=== PATIENT | female | born 1930 | race Caucasian/White ===

== ENCOUNTER 2017-02-28 05:27 | Inpatient (IN) ==
[2017-02-26 16:04] LABS: Appearance,Urine HAZY; Bilirubin,Urine NEG (NEG); Color,Urine YELLOW; Glucose,Urine (UA) NEGATIVE (NEG); Leukocyte Esterase,Urine NEG /uL (NEG); Nitrate,Urine NEG (NEG); Protein,Urine NEG (NEG); Specific Gravity,Urine 1.013 (1.000-1.035); Urine Blood NEG mg/dL (<0.03); Urobilinogen,Urine NEG (NEG)
[2017-02-26 16:24] LABS: Basophils # (Auto) 0 K/mcL (0.0-0.3); Basophils % (Auto) 0.4 % (0.0-2.0); Eosinophils # (Auto) 0 K/mcL (0.0-0.7); Eosinophils % (Auto) 0.2 % (0.0-7.0); Granulocytes % (Auto) 57.2 % (38.0-78.0); Lymphocytes # (Auto) 3.2 K/mcL (1.5-4.8); Lymphocytes % (Auto) 34.8 % (15.5-49.0); Mean Cell Volume 92.3 fL (80.0-100.0); Mean Corpuscular HGB Conc 33.1 g/dL (31.0-36.0); Mean Corpuscular Hemoglobin 30.6 pg (26.0-34.0); Monocytes # (Auto) 0.7 K/mcL (0.1-0.9); Monocytes % (Auto) 7.4 % (1.0-12.0); Platelet Count 221 K/mcL (140-440); RBC 4.59 M/mcL (4.00-5.20); Red Cell Distribution Width 13.6 % (11.5-14.5)
[2017-02-26 16:27] LABS: Blood Urea Nitrogen 19 mg/dl (8-23)
[2017-02-28] MEDS ORDERED: PREGABALIN 75 MG CAPSULE PO SCH (06:00)
[2017-02-28] MEDS ORDERED: ceFAZolin 1 GM VIAL IV SCH ×2 (06:00→15:00)
[2017-02-28] MEDS ORDERED: oxyCODONE 10 MG TAB.ER.12H PO SCH (06:00)
[2017-02-28] MEDS ORDERED: CELECOXIB 200 MG CAPSULE PO SCH (06:00)
[2017-02-28] MEDS ORDERED: ONDANSETRON 4 MG/2 ML VIAL IV ONE (07:45)
[2017-02-28] MEDS ORDERED: ePHEDrine 50 MG/ML AMPUL IV ONE (07:45)
[2017-02-28] MEDS ORDERED: GLYCOPYRROLATE 0.2 MG/ML VIAL IV ONE (07:45)
[2017-02-28] MEDS ORDERED: MIDAZOLAM 5 MG/5 ML VIAL IV ONE (07:45)
[2017-02-28] MEDS ORDERED: DEXAMETHASONE 10 MG/ML VIAL IV ONE (07:45)
[2017-02-28] MEDS ORDERED: PROPOFOL 200 MG/20 ML VIAL IV ONE (07:45)
[2017-02-28] MEDS ORDERED: LIDOCAINE HCL/PF 100 MG/5 ML SYRINGE IV ONE (07:45)
[2017-02-28] MEDS ORDERED: TRANEXAMIC ACID 1,000 MG/10 ML VIAL IV ONE (07:45)
[2017-02-28] MEDS ORDERED: PHENYLEPHRINE 10 MG/ML VIAL IV ONE (07:45)
[2017-02-28] MEDS ORDERED: HEPARIN 10,000 UNIT/ML VIAL IR ONE (08:33)
[2017-02-28] MEDS ORDERED: METOPROLOL TARTRATE 5 MG/5 ML VIAL IV PRN (08:52)
[2017-02-28] MEDS ORDERED: HYDROmorphone 2 MG/ML SYRINGE IV PRN (08:52)
[2017-02-28] MEDS ORDERED: IPRATROPIUM/ALBUTEROL 3 ML AMPUL.NEB NEB PRN (08:52)
[2017-02-28] MEDS ORDERED: BENZOCAINE/MENTHOL 1 LOZENGE PO PRN ×2 (08:52→09:21)
[2017-02-28] MEDS ORDERED: ONDANSETRON 4 MG/2 ML VIAL IV PRN ×2 (08:52→09:21)
[2017-02-28] MEDS ORDERED: ePHEDrine 50 MG/ML AMPUL IV PRN (08:52)
[2017-02-28] MEDS ORDERED: NALOXONE HCL 0.4 MG/ML VIAL IV PRN (08:52)
[2017-02-28] MEDS ORDERED: diphenhydrAMINE 50 MG/ML VIAL IV PRN (08:52)
[2017-02-28] MEDS ORDERED: FLUMAZENIL 0.1 MG/ML ML IV PRN (08:52)
[2017-02-28] MEDS ORDERED: METHOCARBAMOL 1,000 MG/10 ML VIAL IV PRN (08:52)
[2017-02-28] MEDS ORDERED: ACETAMINOPHEN 1,000 MG/100 ML BOTTLE IV ONE (08:52)
[2017-02-28] MEDS ORDERED: MEPERIDINE 25 MG/ML SYRINGE IV PRN (08:52)
[2017-02-28] MEDS ORDERED: fentaNYL 100 MCG/2 ML VIAL IV PRN (08:52)
[2017-02-28] MEDS ORDERED: LACTATED RINGERS 1,000 ML IV SCH (09:00)
--- NOTE | 2017-02-28 09:20 | Brief Operative Note ---
Date of procedure: 02/28/17 Pre-op diagnosis: Right hip DJD Post-op diagnosis: same Procedure: Right anterior total hip arthroplasty Grafts/Implants: Yes (Depuy Actis 6 std, +1.5 36 delta head, 54 cup, neutral altrx liner) Anesthesia: spinal Findings: arthritis Complications: none Surgeon: Moises Thomas Assistive Technology Specialist: Chuy Bland Estimated blood loss (cc): 150 Specimens Removed/Pathology: none sent Condition: stable Disposition: PACU
[2017-02-28] MEDS ORDERED: TRANEXAMIC ACID 1,000 MG/10 ML VIAL IV SCH (09:21)
[2017-02-28] MEDS ORDERED: KETOROLAC 15 MG/ML VIAL IV PRN (09:21)
[2017-02-28] MEDS ORDERED: ACETAMINOPHEN 325 MG TABLET PO PRN (09:21)
[2017-02-28] MEDS ORDERED: MAGNESIUM HYDROXIDE 30 ML ORAL.SUSP PO PRN (09:21)
[2017-02-28] MEDS ORDERED: BISACODYL 10 MG SUPP.RECT PR PRN (09:21)
[2017-02-28] MEDS ORDERED: FLEETS ADULT ENEMA PR PRN (09:21)
--- NOTE | 2017-02-28 10:14 | XRay Report ---
CLINICAL INFORMATION: Reason for Exam:Post-op Total Hip COMPARISON: None. FINDINGS: Right total hip prostheses is anatomically aligned. There are no osseous abnormalities. Moderate L5-S1 degenerative disc disease noted. There is mild degenerative change seen in the left hip. Soft tissue swelling over the surgical site seen as expected IMPRESSION: Right hip prostheses in anatomic alignment Interpreted and Authenticated by: Zaki Lainez 02/28/17
[2017-02-28] MEDS: 0.9 % SODIUM CHLORIDE 1,000 ML IV SCH ×2 (12:10→21:09)
--- NOTE | 2017-02-28 12:55 | Operative Note ---
DATE OF OPERATION: 02/28/2017 PREOPERATIVE DIAGNOSIS: Right hip severe osteoarthritis. POSTOPERATIVE DIAGNOSIS: Right hip severe osteoarthritis. PROCEDURE PERFORMED: Right anterior approach total hip arthroplasty using a DePuy Actis size 6 standard offset femoral stem, a +1.5, 36 mm delta ceramic head ball with a 54 three-hole Newman cup with a neutral AltrX liner. SURGEON: Moises Thomas MD. CIGAR MACHINE FEEDER: Fahrad Bland PA-C. ANESTHESIA: Spinal plus general. DRAINS: None. SPECIMENS: Femoral head and reamings, which were discarded. BLOOD LOSS: 150 mL COMPLICATIONS: None. POSTOPERATIVE CONDITION: Stable. INDICATIONS FOR SURGERY: This is an 87-year-old female who has had longstanding progressive worsening right hip pain and radiographs showed advanced [id number] osteoarthritis. FINDINGS AT SURGERY: As above. Post implantation showed components in good position with nearly symmetrical leg length and offset. PROCEDURE IN DETAIL: The patient had been seen preoperatively. Informed consent had been obtained after discussion of risks and benefits of surgery. Risks including, but not limited to, bleeding, possibly requiring transfusion; infection, possibly requiring implant removal and prolonged IV antibiotics; injury to nerves, blood vessels, and other surrounding structures; anesthetic risks; incomplete or no resolution of symptoms; leg length discrepancy; dislocation; fracture; DVT and pulmonary embolus risks; and the possibility of needing further surgery. She understood these risks and wished to proceed. Correct operative site was marked in preoperative holding and the patient received spinal anesthesia. She was then taken to the operating room and LMA general given. She was carefully positioned on the fracture table and then right hip and groin were carefully prepped and draped in normal sterile fashion. Timeout was performed verifying patient name, operative site, and plan. Standard anterior approach incision was made with a scalpel through skin and subcutaneous tissue and hemostasis was obtained with Bovie cautery. Careful blunt dissection was taken down onto the tensor fascia and then this was undermined circumferentially. IrriSept irrigation was done and then a ring retractor placed. Tensor fascia was incised in line with the muscle fibers and then careful blunt dissection taken medial to the muscle belly. Blunt cobra retractors were placed on the superior and inferior femoral neck. The reflected head of the rectus was detached off the anterior capsule and then anterior capsulectomy was performed after coagulating and cutting the circumflex vessels and releasing fascia distally. Capsule or releases were taken out towards the greater trochanter and down towards the lesser and then corkscrew was placed in the femoral head. An osteotome was used under fluoro to identify our neck cut trajectory and then oscillating tip saw used to make our osteotomy and the femoral head was removed. The acetabulum was exposed and labrum was removed circumferentially as well as soft tissue from the floor. A reamer was used initially directly medialize to the tear drop and then increasing reamer angle up to a 53 reamer before we got rim ream. We trialed a 53 and had good press-fit, so a 54 no-hole Newman cup was opened. We irrigated IrriSept. After a minute we pulse lavaged copiously with saline and then impacted the cup at approximately 40 degrees of inclination and 25 degrees of anteversion. This seated very well; however, radiographically it looked like it was a millimeter or so from fully seating so I went ahead and placed a screw in the posterior superior quadrant drilling and then placing a 35 mm screw. We got excellent cortical purchase but this did not close the gap down. Center hole cover was placed and a neutral AltrX liner was carefully impacted. We checked for any anterior osteophytes. This was removed with an osteotome. We then removed traction from the leg and then externally rotated, extended. Capsule release was taken out towards trochanter around the posterior neck. A box osteotome was used to gain canal entry and then an awl was used to identify trajectory. Rongeur and rasp were used to lateralize and then began sequentially broaching with the Actis broaches up to a size 5. We calcar planed and then placed a standard offset neck trial with a +1.5 head ball. Hip was reduced. AP pelvis was taken to verify neutral rotation and AP of the nonoperative and operative hips were taken. We overlaid x-rays. Leg length and offset were nearly symmetrical. It looked like the stem was slightly undersized, so we went ahead and redislocated. I removed the neck trial ball and then impacted the 5 broach down below our neck cut, so I went up to a size 6, which seated right at our neck cut. We opened a size 6 standard offset Actis stem and the trial stem was removed. IrriSept was irrigated down the femoral canal and after waiting imminent pulse lavaged with saline. The stem was then impacted until it seated on the medial calcar and then a +1.5 head ball was opened. The stem was carefully cleaned and dried and then head ball was briskly impacted. The hip was reduced and final fluoro images taken and saved. We then irrigated IrriSept again, after a minute pulse lavaged and then tensor fascia lolly was closed with a #1 Vicryl, one running proximal and one running distal. Final IrriSept was irrigated after removing the ring retractor and after a minute pulse lavage and then 2-0 Monocryl used for subcutaneous and gracia for skin. Xeroform sterile dressings were applied and then the patient was awakened, extubated, and transferred to recovery in stable condition. [email or web address]:[id number] Job ID: [id number] Doc ID: [id number] Moises Thomas MD
[2017-02-28] MEDS: CALCIUM CARBONATE 500 MG TAB.CHEW CHEWED SCH ×2 (13:11→17:12)
[2017-02-28] MEDS: 0.9 % SODIUM CHLORIDE 10 ML SYRINGE IV SCH ×2 (13:12→22:00)
[2017-02-28] MEDS: ceFAZolin 1 GM VIAL IV SCH ×2 (16:10→23:38)
[2017-02-28] MEDS: oxyCODONE/APAP 5/325MG TABLET PO PRN (16:18)
[2017-02-28] MEDS ORDERED: POLYETHYLENE GLYCOL 3350 17 GM PACKET PO SCH (17:30)
[2017-02-28] MEDS ORDERED: PROPRANOLOL 60 MG CAP.XL.24H PO SCH (21:00)
[2017-02-28] MEDS ORDERED: SENNOSIDES 1 TABLET PO SCH (21:00)
[2017-02-28] MEDS ORDERED: SIMVASTATIN 20 MG TABLET PO SCH (21:00)
[2017-02-28] MEDS ORDERED: FAMOTIDINE 20 MG TABLET PO PRN (21:00)
[2017-02-28] MEDS: ASPIRIN 325 MG ENTERIC COATED TABLET PO SCH (21:09)
[2017-02-28] MEDS: DOCUSATE SODIUM 100 MG CAPSULE PO SCH (21:09)
[2017-03-01] MEDS: oxyCODONE/APAP 5/325MG TABLET PO PRN ×2 (01:48→09:18)
--- NOTE | 2017-03-01 05:38 | Orthopedic Progress Note ---
Subjective Patient information: Note initiated : 03/01/17 at 5:36 am Service Date, if different from initiated Date: [] Patient: Kenya Adams 87 y/o F admitted on 02/28/17 for Right Total Hip Arthroplasty. Chief Complaint: [] Principal diagnosis: s/p total knee arthroplasty Interval history: patient sleeping comfortably Objective Vital signs: Vital Signs Temp Pulse Resp BP BP Pulse Ox 03/01/17 04:00 97.9 F 55 L 16 139/61 97 02/28/17 23:58 94 02/28/17 23:57 98.2 F 59 L 16 97/54 88 L 02/28/17 19:43 97.6 F 61 16 108/66 94 02/28/17 16:00 96.9 F L 56 L 20 138/70 02/28/17 15:38 127/80 90 02/28/17 13:10 134/75 95 02/28/17 12:28 134/70 98 02/28/17 12:11 125/82 96 02/28/17 11:40 53 L 123/85 97 02/28/17 11:09 169/93 97 02/28/17 09:50 97.6 F 66 14 152/89 95 02/28/17 09:38 72 13 160/84 91 02/28/17 09:29 97.2 F 78 16 151/83 94 02/28/17 05:45 97.6 F 65 20 176/95 96 Intake and Output 02/28/17 02/28/17 03/01/17 13:59 21:59 05:59 Intake Total 2580 / 2580 240 / 240 550 / 550 Output Total 300 / 300 425 / 425 200 / 200 Balance 2280 / 2280 -185 / -185 350 / 350 Intake: IV 1200 / 1200 Oral 600 / 600 240 / 240 550 / 550 GI Tube Flush 780 / 780 Output: Void Amount 425 / 425 200 / 200 Straight 375 / 375 Estimated Blood Loss 300 / 300 Other: Meal Lunch Dinner Percent of Meal Consumed 100% 100% Feeding Ability Assist with Tray Set Up Independent # Voids 1 1 Weight 165 lb Patient Weight 03/01/17 05:59 Weight 165 lb Intake & Output: Intake & Output 02/28/17 02/28/17 03/01/17 13:59 21:59 05:59 Intake Total 2580 / 2580 240 / 240 550 / 550 Output Total 300 / 300 425 / 425 200 / 200 Balance 2280 / 2280 -185 / -185 350 / 350 Weight 165 lb Intake: IV 1200 / 1200 Oral 600 / 600 240 / 240 550 / 550 GI Tube Flush 780 / 780 Output: Void Amount 425 / 425 200 / 200 Straight 375 / 375 Estimated Blood Loss 300 / 300 Other: Meal Lunch Dinner Percent of Meal Consumed 100% 100% Feeding Ability Assist with Tray Set Up Independent # Voids 1 1 Additional Comments: sleeping comfortably - Labs CBC & BMP: 02/26/17 12:58 02/26/17 12:58 Labs: Orthopedic Labs 02/26/17 12:58 PT 13.1 INR 1.0 03/01/17 02/26/17 04:33 12:58 Hgb Pending 14.0 Hct Pending 42.4 Assessment and Plan (1) S/P total hip arthroplasty POD#1-stable -PT this am -poss d/c later today Status: Acute
--- NOTE | 2017-03-01 05:45 | Discharge Summary ---
Ortho Discharge - [facility] - Patient Instructions Diet: Regular Diet Activity: activity as tolerated, weight bearing as tolerated Total Hip Protocol: Follow activity instructions as provided by Physical Therapy. Dressing Care: May shower in 2 days, Aquacel Ag - leave on for 5 days - Problem Maintenance (1) S/P total hip arthroplasty Status: Acute - Follow Up Plan Disposition: Home, Self-Care Prognosis: Good Rehab Potential: Good - Orders For Discharge Additional Discharge Orders: Physical Therapy at Discharge - [facility] Location: Determined By Patient Toilet Riser Discharge Order Location: Determined By Patient Walker Location: Determined By Patient
[2017-03-01] MEDS: 0.9 % SODIUM CHLORIDE 1,000 ML IV SCH (05:58)
[2017-03-01] MEDS: 0.9 % SODIUM CHLORIDE 10 ML SYRINGE IV SCH (06:25)
--- NOTE | 2017-03-01 07:03 | Discharge Summary ---
Providers - Providers Patient information: Note initiated : 03/01/17 at 7:01 am Service Date, if different from initiated Date: [] Patient: Kenya Adams 87 y/o F admitted on 02/28/17 for Right Total Hip Arthroplasty. Chief Complaint: [] Discharge date: 03/01/17 Hospitalization Hospital course: Pt admitted for direct anterior total hip arthroplasty. Transfered top the floor after the procedure for IV pain meds, iv abx, and PT. Pt was discharged on post-op day 1 with ASA for DVT prevention and appropriate pain meds. Discharge diagnosis: R hip osetoarthrosis Exam - Exam Clean and dry: Yes Weight bearing status: as tolerated Ortho Discharge - [facility] - Patient Instructions Diet: Regular Diet Activity: activity as tolerated, weight bearing as tolerated Total Hip Protocol: Follow activity instructions as provided by Physical Therapy. - Follow Up Plan Disposition: Home, Self-Care Prognosis: Good Rehab Potential: Good Overall status at discharge: patient is progressing back to baseline - Orders For Discharge Prescriptions: Aspirin [Ecotrin] 325 mg PO BID #60 tab.ec Docusate Sodium 250 mg PO BID #60 capsule oxyCODONE/APAP [Percocet 5-325 mg] 1 tab PO Q4H PRN #60 tablet PRN Reason: Pain Polyethylene Glycol 3350 [Miralax] 17 gm PO DAILY #30 packet traMADol [Ultram] 50 - 100 mg PO Q4-6HP PRN #60 tablet PRN Reason: Pain Additional Discharge Orders: Physical Therapy at Discharge - [facility] Location: Determined By Patient Toilet Riser Discharge Order Location: Determined By Patient Walker Location: Determined By Patient Pending Studies Resuscitation Status Full Code Diet Regular Diet Start SunFeb 28 Lunch Aspirin (Ecotrin) 325 mg PO BID [facility] Last Admin: 02/28/17 21:09 Dose: 325 mg Calcium Carbonate/Glycine (Tums) 1,000 mg CHEWED TIDCC [facility] Last Admin: 02/28/17 17:12 Dose: 1,000 mg Admin: 02/28/17 13:11 Dose: 1,000 mg Docusate Sodium (Colace) 100 mg PO BID [facility] Last Admin: 02/28/17 21:09 Dose: 100 mg Sodium Chloride (Sodium Chloride 0.9%) 1,000 mls @ 100 mls/hr IV .Q10H [facility] Last Admin: 03/01/17 05:58 Dose: Admin: 02/28/17 21:09 Dose: Not Given Admin: 02/28/17 12:10 Dose: 100 mls/hr Oxycodone/Acetaminophen (Percocet 5-325 Mg) 0 tab PO Q4HP PRN PRN Reason: Pain Last Admin: 03/01/17 01:48 Dose: 1 tab Admin: 02/28/17 16:18 Dose: 1 tab Propranolol HCl (Inderal La) 60 mg PO HS [facility] Last Admin: 02/28/17 21:10 Dose: 60 mg Senna (Senokot) 2 tab PO HS [facility] Last Admin: 02/28/17 21:09 Dose: 2 tab Simvastatin (Zocor) 20 mg PO HS [facility] Last Admin: 02/28/17 21:09 Dose: 20 mg Sodium Chloride (Saline Flush) 10 ml IV Q8 [facility] Last Admin: 03/01/17 06:25 Dose: 10 ml Admin: 02/28/17 22:00 Dose: 10 ml Admin: 02/28/17 13:12 Dose: Not Given Shift Summary 03/01/17 04:13 Shift Summary by Vida Nunez Pt had a good night. Up with SBA and FWW. Voiding in BR QS. Drsg to right anterior hip has some shadow drainage outlined. Alert and oriented. Medicated with 1 tab Percocet x1. Ice pack used. IV to right hand, SL, patent. VSS, placed 2L NC fci through night for O2 sats of 88-89%. She is fine on RA when awake. Ambulated down to cafeteria and back to room. Poss d/c today. Initialized on 03/01/17 04:13 - END OF NOTE
[2017-03-01] MEDS ORDERED: LEVOTHYROXINE 125 MCG TABLET PO SCH (07:30)
[2017-03-01] MEDS ORDERED: ERGOCALCIFEROL (VITAMIN D2) 50,000 UNIT CAPSULE PO SCH (09:00)
[2017-03-01] MEDS ORDERED: LISINOPRIL 10 MG TABLET PO SCH (09:00)
[2017-03-01] MEDS: CALCIUM CARBONATE 500 MG TAB.CHEW CHEWED SCH (09:20)
[2017-03-01] MEDS: DOCUSATE SODIUM 100 MG CAPSULE PO SCH (09:20)
[2017-03-01] MEDS: ASPIRIN 325 MG ENTERIC COATED TABLET PO SCH (09:20)
== END 2017-03-01 11:25 | disposition home or self-care (01) | DRG 470 ==
LOC: MEDSUR 05:27
PROVIDERS: ADMIT Orthopaedic Surgery; ATTEND Orthopaedic Surgery